=== PATIENT | male | born 1985 | race Caucasian/White ===

== ENCOUNTER 2021-03-22 08:50 | Emergency (ER) | payer OTHER ==
[~2021-03-22] VITALS: Ht 182.9 cm; Wt 90.7 kg
[~2021-03-22 08:50] MED LIST: DOXY100C2 PO; FAMO-119 PO; HYDR-34 PO; HYDR473S16 PO; NFPRILOC40 PO; PNT40TEC PO; PRCD5U PO; SCR1T1 PO; TERB250T10 PO; [UNRECOGNIZED DRUG - REMARK]
[2021-03-22 09:00] VITALS: BP 140/82
--- NOTE | 2021-03-22 09:34 | ED EENT ---
History of Present Illness General Chief Complaint: Oral/Throat Problems Stated Complaint: COVID +/SORE THROAT Nursing Triage Note: Patient reports his and children have tested positive for COVID-19 within the last week, so he decided to get tested on Tuesday and tested positive. He states he developed a sore throat yesterday and came to the ER today to get tested for strep throat. Source: patient History of Present Illness Date Seen by Provider: Mar 22, 2021 Time Seen by Provider: 08:58 Initial Comments 35-year-old male presenting with concerns for sore throat and possible strep throat. He has been having some congestion and cough. He was diagnosed with Covid on Tuesday after getting tested since all of his family members are positive for Covid. He has not been short of breath or running high fevers. He also has some poison ramandeep on his arms and trunk. He has painful swallowing. He saw a sore spot in his throat was concerned he might have strep. His symptoms were little different than his and children so he thought he had something different from them. Location: throat Prearrival Treatment: no prearrival treatment Associated Symptoms: No change in hearing; cough; No drooling, No ear drainage, No facial pain/swelling; fever (Subjective low-grade), malaise, nasal congestion/drainage; No sinus infection; sore throat; No tooth pain, No voice change Allergies and Home Medications Allergies Coded Allergies: No Known Drug Allergies (Unverified , 04/01/11) Patient Home Medication List Home Medication List Reviewed: Yes Hydrocodone Bit/Acetaminophen (Lortab 7.5 Mg Tablet) 1 Ea Tablet, 1-2 EACH PO Q6H PRN for PAIN Prescribed by: MORALES MINOR on 12/23/14 1006 Omeprazole (Prilosec) 40 Mg Capsule.dr, 40 MG PO DAILY, (Reported) Entered as Reported by: OLIVIA ALBARRAN on 11/28/14 07 Sucralfate (Carafate) 1 Gm Tab, 1 GM PO ACHS, (Reported) Entered as Reported by: OLIVIA LABARRAN on 11/28/14701 Review of Systems Review of Systems Constitutional: chills, fever (Low-grade subjective) Eyes: No Symptoms Reported Ears: No Symptoms Reported Nose: congestion; denies epistaxis Mouth: no symptoms reported Throat: pain; denies neck stiffness; painful swallowing Respiratory: cough Cardiovascular: no symptoms reported Gastrointestinal: no symptoms reported Musculoskeletal: other (Generalized body aches) Skin: No rash Neurological: Headache Past [id number]-[id number]-[id number] Hx Patient Social History Tobacco Use?: No Substance use?: No Alcohol Use?: Yes Alcohol Frequency: Once in a while Pt feels they are or have been: No Seasonal Allergies Seasonal Allergies: Yes Past Medical History Gastroesophageal Reflux PTSD Recent Skin Changes Family Medical History Heart Disease Physical Exam Vital Signs Vital Signs - First Documented 03/22/21 09:00 Temp 37.0 Pulse 88 Resp 16 B/P (MAP) 140/82 (101) Pulse Ox 98 O2 Delivery Room Air Height, Weight, BMI Height: 6'2.00" Weight: 185lbs. oz. 83.578062wm; 27.00 BMI Method:Stated General Appearance: WD/WN, no apparent distress Eyes: bilateral eye PERRL, bilateral eye EOMI Mouth/Throat: pharynx swelling (Mild wound erythema and a vesicular ulceration on the right soft palate); No tonsillar exudate Neck: full range of motion, supple, lymphadenopathy (R) (Tender to palpation), lymphadenopathy (L) (Tender to palpation submandibular nodes) Cardiovascular: normal peripheral pulses, regular rate, rhythm Respiratory: chest non-tender, lungs clear, normal breath sounds Gastrointestinal: normal bowel sounds, non tender, soft, no pulsatile mass 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, alert, oriented x 3 Skin: warm/dry, rash (Linear areas of erythematous vesicular papular rash on his extremities) Progress/Results/Core Measures Results/Orders Lab Results Laboratory Tests Test 03/22/21 09:00 Range/Units Group A Streptococcus Screen NEGATIVE NEGATIVE My Orders Orders - JANNA REHMAN MD Rapid Strep A Screen (03/22/21 09:09) Dexamethasone Injection (Decadron Inje (03/22/21 10:13) Methylprednisolone Acetate Inj (Depo-Med (03/22/21 10:13) Vital Signs/I&O 03/22/21 09:00 Temp 37.0 Pulse 88 Resp 16 B/P (MAP) 140/82 (101) Pulse Ox 98 O2 Delivery Room Air Blood Pressure Mean: 101 Progress Progress Note : Progress Note Counseled patient that the rapid strep test was negative. Throat pain and swelling as well as the cough and congestion and having the poison ramandeep dermatitis will do a Decadron of Depo-Medrol shot to try and help with his symptoms. He can use Mucinex [id number]. Use of humidifier or vaporizer at the bedside to keep his mucous membranes moist. Check back with clinic for continued concerns. Departure Impression Primary Impression: Pharyngitis Qualified Codes: J02.9 - Acute pharyngitis, unspecified Additional Impressions: COVID-19 virus infection Respiratory tract infection due to COVID-19 virus Poison ramandeep dermatitis Disposition: HOME, SELF-CARE Condition: Stable Departure-Patient Inst. Decision time for Depature: 10:15 Referrals: [facility] [place] Patient Instructions: Poison Ramandeep, Poison [place], Poison [place] ED, Sore Throat, Adult ED, COVID-19 ED Add. Discharge Instructions: Stay well-hydrated and drink plenty of fluids. The steroid shots from today will help with the throat pain and swelling from the viral infection as well as the itching and rash from poison ramandeep. The lab will run a culture off of the swab today and if it grows out strep, you will get a call so you can get started on antibiotics. Take Acetaminophen, Ibuprofen, or Naproxen as medicines over the counter to try and treat for throat pain and fever with body aches. You could use Mucinex to help with cough and congestion. Use a Humidifier or Vaporizer at the bedside when sleeping to help with keeping your throat from getting dried out and more irritated. You could call [phone] to get established with a provider from the [facility] clinic here in [place] if you need a primary care provider. All discharge instructions reviewed with patient and/or family. Voiced understanding. JANNA REHMAN MD Mar 22, 2021 09:34
[2021-03-22] MEDS ORDERED: methylPREDNISolone 80 MG/ML (DEPO MEDROL) VIAL IM STA (10:13)
== END 2021-03-22 10:22 | disposition home or self-care (01) ==
LOC: EDUNIT# 08:50 → ER FS 08:52
DX: U07.1 COVID-19 (principal); J02.9 Acute pharyngitis, unspecified; L23.7 Allergic contact dermatitis due to plants, except food; K21.9 Gastro-esophageal reflux disease without esophagitis; Z79.899 Other long term (current) drug therapy; Z73.0 Burn-out
CPT/HCPCS: 87430; 99284